=== PATIENT | female | born 1960 | race Caucasian/White ===

== ENCOUNTER 2022-06-10 01:51 | Day surgery (SDC) | payer BC, SELFPAY ==
[2022-06-06 08:38] VITALS: BMI 33.5
--- NOTE | 2022-06-06 08:46 | PC.NURSE ---
Report to the Outpatient Waiting Room, entrance under the green pavilion located off [facility], at time_0600 on date 06/10/22_. Planned Procedure Time: _0730_. Time changes happen often and if your time is changed the preop area will call you the afternoon before. - You and your visitor will be asked to self-screen and do not enter if you have any COVID symptoms. - A mask is optional within the hospital at this time. Patients may have clear liquids (water, carbonated beverages, clear teas, apple juice) until 3 hours prior to surgery with a maximum of 20 ounces. - No food from midnight until time of surgery - Infants may have breast milk until 4 hours before surgery, infant formula 6 hours prior to surgery. - Children will be allowed to drink immediately following surgery. If applicable, please bring a bottle or sippy cup to assist with drinking. Juice, water, soda, and popsicles are readily available. For infants on formula, please bring formula the day of surgery. Pacifiers are allowed. Take the following medications with a SIP of water the morning of surgery: ___LORAZEPAM, OMEPRAZOLE, ZOFRAN IF NEEDED DO NOT STOP ANY OF YOUR OTHER PRESCRIPTION MEDICATIONS PRIOR TO SURGERY ?EXCEPT THE FOLLOWING Medications to discontinue per physician SUPPLIMENTS AND VITAMINS Date to take last dose 06/07/22 Please no make-up, nail german, hairspray, perfume, deodorant, or body powder the day of surgery. No jewelry (including any body piercings) or valuables the day of surgery, leave them at home. Please take a shower or bath the night before, or the morning of, surgery with an antibacterial soap. Wear comfortable, loose fitting clothing. Children are encouraged to wear pajamas. - Jewelry must be removed prior to entering the operating room. Rings and piercings that are not removed may be cut off. - The hospital will not accept responsibility for valuables. - Please leave all valuables, including medications, at home the day of surgery. If you are going home after surgery, a licensed bookmobile driver must drive you home. - NO public transportation without another adult if you receive anesthesia. - We recommend that an adult stay with you for 24 hours following discharge. - We also recommend that you do not drive, make important decision, drink alcoholic beverages, or take any drugs that were not prescribed by your health care provider for at least 24 hours after your discharge time. For Pediatric surgeries, we recommend two adults accompany the child home. Follow any additional instructions given to you from your surgeon. If you or anyone in your household have experienced Covid symptoms in the past week, please notify your surgeon or the nurse liaison at the phone number below for possible testing. Telephone instructions given to PATIENT__and asked if any additional questions and then verbalized understanding. Patient advised to call surgeon office or pre surgery nurse liaison [phone] if any additional questions.
--- NOTE | 2022-06-09 12:45 | WPDANESEPPF ---
Anes - Initial Pre Proc Eval Procedure: Operation Date: 06/10/22 07:30 Proposed Procedures p Right Knee Arthroscopy - Luca Mahan MD Date/Time: 06/09/22 12:45 Surgeon: Luca Mahan MD Pre Op Diagnosis: Rt Medial Meniscus Tear Patient Data Age: 62 Gender: F Height: 1.75 m Weight: 103 kg Allergies Allergy/AdvReac Type Severity Reaction Status Date / Time No Known Allergies Allergy Verified 06/06/22 08:33 Home Medications Medication Instructions Recorded Confirmed Type biotin 10,000 mcg capsule 10,000 mcg PO DAILY 05/10/22 06/06/22 History cranberry 500 mg capsule 500 mg PO DAILY 05/10/22 06/06/22 History cyanocobalamin (vitamin B-12) 2,500 mcg PO DAILY 05/10/22 06/06/22 History 2,500 mcg tablet diclofenac sodium 1 % topical gel 2 g topical QID 05/10/22 06/06/22 History (Voltaren Arthritis Pain) lorazepam 0.5 mg tablet 0.5 mg PO TID PRN Anxiety 05/10/22 06/06/22 History multivitamin (Multiple Vitamins 1 tablet PO DAILY 05/10/22 06/06/22 History tablet) omega 0-bmx-olx-fish oil 1,000 mg 1 cap PO DAILY 05/10/22 06/06/22 History (120 mg-180 mg) capsule (Fish Oil) omeprazole 20 mg capsule,delayed 20 mg PO BID PRN Indigestion 05/10/22 06/06/22 History release ondansetron HCl 4 mg tablet 4 mg PO Q8H PRN Nausea 05/10/22 06/06/22 History oxybutynin chloride 5 mg tablet 5 mg PO DAILY 05/10/22 06/06/22 History valacyclovir 1 gram tablet 1,000 mg PO DAILY PRN COLD SORE 05/10/22 06/06/22 History BREAKOUT venlafaxine 150 mg 150 mg PO HS 05/10/22 06/06/22 History capsule,extended release 24 hr chlorhexidine gluconate 4 % 1 applic topical DAILY #237 mL 06/03/22 06/06/22 Rx topical liquid (Hibiclens) Patient hx anesthesia problems: none Family hx anesthesia problems: none Results Review: All pre-operative results and documents have been reviewed as part of the pre-operative evaluation. [facility] Past Medical History Medical History (Updated 06/09/22 @ 12:46 by Cm Adams DO) Anxiety Depression GERD (gastroesophageal reflux disease) Surgical History Surgical History Hx of cholecystectomy 1979 Hx of hysterectomy 2005 Social History Social History Years smoked: 5 Smoking status: Former smoker Additional smoking assessment comments: 1997 Alcohol intake: current Drinks per week: 2 Substance use type: does not use Living arrangements: with family Occupation/Education: occupation Additional occupation/education comments: [employer] Gender identity (if verbalized by the patient): Female Anes - Eval Final PreProcedure Day of Procedure 06/09/22 12:45 Patient weight: obese Heart: regular rate and rhythm Lungs: clear to auscultation Airway: Mallampati scale class II Neurological: alert and oriented Last oral intake: >/= 8 hours ASA classification: II Emergent: no Anesthetic plan: proceed Anesthesia type and monitoring: general GIVS and standard monitoring Results Review: All pre-operative results and documents have been reviewed as part of the pre-operative evaluation. Informed Consent: The patient's anesthetic plan and its attendant risks and benefits were discussed with the patient/family/POA. Questions were solicited and answers provided to the satisfaction of the patient/family/POA.
[2022-06-10] VITALS (11 sets, daily range): BP systolic 148–203; BP diastolic 75–95; PULSE 78–106; RESP 13–19; TEMP 36.3–36.6; O2SAT 96–100
[2022-06-10] MEDS: LACTATED RINGERS 1,000 ML 30 ML IV CONT ×2 (06:45→10:07)
[2022-06-10] MEDS: CELECOXIB 200 MG CAPSULE PO (06:45)
[2022-06-10] MEDS: ACETAMINOPHEN 500 MG TABLET 1000 MG PO (06:45)
--- NOTE | 2022-06-10 07:15 | WPDHPUPDATE1 ---
History and Physical Update Update Date/Time: 06/10/22 07:15 History and Physical has been reviewed, including an updated exam of the patient. There are NO changes in the patient's condition. Risks, benefits, and alternatives have been discussed and questions answered. Patient agrees to proceed with procedure.
--- NOTE | 2022-06-10 07:29 | PM.IMHP ---
H&P: HPI History of Present Illness Date/Time: 06/10/22 07:29 Chief Complaint: RIGHT KNEE PAIN Narrative: New pt presents w/ Right knee pain that has been present since a twisting injury 11/2021 (~5mo). Pt states she twisted the knee and fell, at the time of injury. She underwent conservative tx including formal PT/OTC NSAIDS/ topicals/etc, without relief. Pain currently located at the posterior aspect of the knee, radiating to the anteromedial aspect. Pt underwent an MRI 04/21/22- pt here to discuss results/poc. Current symptoms: Reports popping, instability and stiffness Location: medial, anterior and posterior Character: constant Onset: 4-6 months Swelling location: Right knee Exacerbated by: weight bearing, kneeling, squatting, stairs, running, rotational activities and prolonged activity Previous treatments: Anti-inflammatory meds: right, Braces: right, Ice: right, Elevation: right and Physical therapy: right Improved by treatment/surgery: no Review of Systems Review of Systems: All systems reviewed & are unremarkable except as noted in HPI and below PMFSH Past Medical History Medical History Anxiety Depression GERD (gastroesophageal reflux disease) Surgical History Surgical History Hx of cholecystectomy 1979 Hx of hysterectomy 2005 Social History Social History Years smoked: 5 Smoking status: Former smoker Additional smoking assessment comments: 1997 Alcohol intake: current Drinks per week: 2 Substance use type: does not use Living arrangements: with family Occupation/Education: occupation Additional occupation/education comments: [employer] Gender identity (if verbalized by the patient): Female Meds Home Medications and Allergies Home Medications Medication Instructions Recorded Confirmed Type biotin 10,000 mcg capsule 10,000 mcg PO DAILY 05/10/22 06/10/22 History cranberry 500 mg capsule 500 mg PO DAILY 05/10/22 06/10/22 History cyanocobalamin (vitamin B-12) 2,500 mcg PO DAILY 05/10/22 06/10/22 History 2,500 mcg tablet diclofenac sodium 1 % topical gel 2 g topical QID 05/10/22 06/10/22 History (Voltaren Arthritis Pain) lorazepam 0.5 mg tablet 0.5 mg PO TID PRN Anxiety 05/10/22 06/10/22 History multivitamin (Multiple Vitamins 1 tablet PO DAILY 05/10/22 06/10/22 History tablet) omega 1-uma-rls-fish oil 1,000 mg 1 cap PO DAILY 05/10/22 06/10/22 History (120 mg-180 mg) capsule (Fish Oil) omeprazole 20 mg capsule,delayed 20 mg PO BID PRN Indigestion 05/10/22 06/10/22 History release ondansetron HCl 4 mg tablet 4 mg PO Q8H PRN Nausea 05/10/22 06/10/22 History oxybutynin chloride 5 mg tablet 5 mg PO DAILY 05/10/22 06/10/22 History valacyclovir 1 gram tablet 1,000 mg PO DAILY PRN COLD SORE 05/10/22 06/10/22 History BREAKOUT venlafaxine 150 mg 150 mg PO HS 05/10/22 06/10/22 History capsule,extended release 24 hr chlorhexidine gluconate 4 % 1 applic topical DAILY #237 mL 06/03/22 06/10/22 Rx topical liquid (Hibiclens) Allergies Allergy/AdvReac Type Severity Reaction Status Date / Time No Known Allergies Allergy Verified 06/10/22 07:30 Exam Const: General: cooperative, healthy appearing and comfortable HENMT: Head: normal to inspection Face/Nose/Sinus: Normal external nose present Mouth: Yes Normal oral and palatal mucosa present Eyes: General: appearance normal, both eyes and all related structures Neck: Neck: normal visual inspection Chest: Chest palpation & inspection: normal inspection of the chest Resp: Effort & Inspection: normal respiratory effort and able to speak in complete sentences Auscultation: clear to auscultation bilaterally Cardio: Rate: regular rate Rhythm: regular rhythm Neuro: General: oriented to person, oriented to place and oriented to time Extr
[2022-06-10] MEDS: ceFAZolin 2 GM/D5W 50 ML 2 GM/50 ML BAG IVPB (07:40)
[2022-06-10] MEDS: BUPivacaine HCL 0.25% PF 10 ML VIAL 30 ML INFILTRATE (08:05)
[2022-06-10] MEDS: ONDANSETRON INJ 4 MG/2 ML VIAL IV PUSH (09:01)
[2022-06-10] MEDS: fentaNYL CITRATE INJ (*CRX) 100 MCG/2 ML VIAL 25 MCG IV PUSH ×8 (09:10→09:39)
--- NOTE | 2022-06-10 09:18 | W.PM.PROC2 ---
Procedure Note - Detailed Date of Procedure 06/10/22 Pre-op Diagnosis Rt Medial Meniscus Tear Post-op Diagnosis Same Procedure Performed RIGHT KNEE SCOPE Surgeon Luca Mahan MD Anesthesia General Description of Procedure PATIENT WAS TAKEN TO THE OR. THE RIGHT LEG WAS PREPPED AND DRAPED STERILE. TROCARS WERE PLACED IN THE USUAL FASHION. CAMERA WAS INTRODUCED. THERE WAS GRADE 3 TO 4 CHONDROMALACIA TO THE PATELLA. THERE WAS A LOT OF SYNOVITIS IN ALL COMPARTMENTS. THE MEDIAL COMPARTMENT SHOWED CHONDROMALACIA TO THE MEDIAL FEMORAL CONDYLE. A SHAVER WAS USED TO PREFORM A CHONDROPLASTY. THERE WAS A COMPLEX MEDIAL MENISCUS TEAR. THE TEAR WAS RESECTED WITH A BITER AND A SHAVER DOWN TO A SMOOTH BASE. THE ACL WAS INTACT. THE LATERAL MENISCUS WAS NOT TORN. THE LATERAL COMPARTMENT HAD GRADE 2 CHONDROMALACIA. CHONDROPLASTY WAS PREFORMED. A SYNOVECTOMY WAS PREFORMED WELL. THE PATELLO FEMORAL JOINT UNDERWENT CHONDROPLASTY. THERE WAS GRADE 2 CHONDROMALACIA IN PART OF THE TROCHLEA. SYNOVECTOMY WAS PREFORMED IN THE SUPERIOR MEDIAL COMPARTMENT. THE WOUNDS WERE APPROXIMATED WITH 4.0 NYLON. STERILE DRESSING WAS APPLIED. PATIENT WAS EXTUBATED. Estimated Blood Loss 5 Complications No immediate complications Condition Stable Disposition PACU
[2022-06-10] MEDS: HYDROmorphone HCL INJ (*CRX) 1 MG/ML SYR 0.5 MG IV PUSH ×4 (09:48→10:12)
[2022-06-10] MEDS: SCOPOLAMINE 1.5 MG PATCH TRANSDERM (09:48)
[2022-06-10] MEDS: oxyCODONE HCL (*CRX) 5 MG TAB IR PO (10:50)
[2022-06-10] MEDS: diphenhydrAMINE HCl INJ 50 MG/ML VIAL 25 MG IV PUSH ×2 (10:57→11:20)
== END 2022-06-10 12:00 | disposition home or self-care (01) ==
PROVIDERS: PCP Pediatrics; Visit Provider Orthopaedic Surgery
PROC: (CPT 29870; principal; 2022-06-10 07:30)
DX: S83.231A Complex tear of medial meniscus, current injury, right knee, initial encounter (principal); M65.861 Other synovitis and tenosynovitis, right lower leg; M94.261 Chondromalacia, right knee; X50.0XXA Overexertion from strenuous movement or load, initial encounter; K21.9 Gastro-esophageal reflux disease without esophagitis; F41.9 Anxiety disorder, unspecified; F32.A Depression, unspecified; Z87.891 Personal history of nicotine dependence; E66.9 Obesity, unspecified; Z68.37 Body mass index [BMI] 37.0-37.9, adult
CPT/HCPCS: 29881; 29876; A9270; J0690; J1100; J1170; J1200; J2405; J2704; J3010; J7120